=== PATIENT | female | born 1940 | race Caucasian/White ===

== ENCOUNTER → 2020-06-27 | Day surgery (SDC) | payer OTHER, MEDICARE ==
--- OUTSIDE RECORDS SUMMARY | 2020-06-27 12:12 | XMS ---
:1940 Author Organization [facility] Care Team Providers Name Role Phone Mega Bennie C Unavailable Androne, C Unavailable Androne, C Unavailable Androne, C Unavailable Androne, C Unavailable Androne, C Unavailable Androne, C Unavailable Androne, C Unavailable Androne, C Unavailable Re-disclosure Warning The records that you are about to access may contain information from federally- assisted alcohol or drug abuse programs. If such information is present, then the following federally mandated warning applies: This information has been disclosed to you from records protected by federal confidentiality rules (42 CFR part 2). The federal rules prohibit you from making any further disclosure of this information unless further disclosure is expressly permitted by the written consent of the person to whom it pertains or as otherwise permitted by 42 CFR part 2. A general authorization for the release of medical or other information is NOT sufficient for this purpose. The Federal rules restrict any use of the information to criminally investigate or prosecute any alcohol or drug abuse patient.The records that you are about to access may contain highly sensitive health information, the redisclosure of which is protected by Article 27-F of the [facility] Public Health law. If you continue you may haveaccess to information: Regarding HIV / AIDS; Provided by facilities licensed or operated by the [facility] Office of Mental Health; or Provided by the [facility] Office for People With Developmental Disabilities. If such information is present, then the following [facility] mandated warning applies: This information has been disclosed to you from confidential records which are protected by state law. State law prohibits you from making any further disclosure of this information without the specific written consent of the person to whom it pertains, or as otherwise permitted by law. Any unauthorized further disclosure in violation of state law may result in a fine or nursing home sentence or both. A general authorization for the release of medical or other information is NOT sufficient authorization for further disclosure. Encounters Encounter Providers Location Date Indications Data Source(s ) Attender: [facility] 04/07/2020 [facility] ([facility] 12:00:00 AM EDT Medical, ) Office Attender: Bennie Mega 04/07/2020 12:00:00 AM EDT [facility] ([facility], ) Office Attender: Bennie Mega 04/07/2020 12:00:00 AM EDT [facility] ([facility]) Office Attender: Bennie Ayoub 04/07/2020 12:00:00 AM EDT [facility] ([facility] 12:00:00 AM EDT [facility] ([facility]) Office Medications Medication Brand Start Product Dose Route Administrative Pharmacy [facility] Indications Reaction Description Data Name Date Form Instructions Instructions Source(s) Hydrochloro HYDROC 03/11/ TABLET 90 complet HYDR OCHLOROT MEDGEN (St thiazide HLOROT 2019 ed HIAZIDE [facility] 12.5 MG HIAZID 12:00: Medical, Oral Tablet E:4295 00 AM PC) HYDROCHLORO 03 EDT THIAZIDE:42 9503 120 ACTUAT FLUTIC 10/01/ SPRAY 1 complet FLUTIC ASONE [facility] (St Fluticasone ASONE 2019 ed NASAL [facility] propionate NASAL: 12:00: Medic al, 0.05 553817 00 AM PC) MG/ACTUAT EST Nasal Inhaler FLUTICASONE NASAL:56446 1 Losartan LOSART 10/01/ TABLET 90 complet LOSARTA N [facility] (St Potassium AN 2019 ed POTASSIUM [facility] 50 MG Oral POTASS 12:00: Medic al, Tablet IUM:97 00 AM PC) LOSARTAN 9492 EST POTASSIUM:9 47384 atorvastati ATORVA 07/05/ TABLET 90 complet ATOR VASTATIN MED[facility] (St n 20 MG STATIN 2018 ed [facility] Oral Tablet :54570 12:00: Medi chad, ATORVASTATI 0 00 AM PC) N:[id number] EDT Insurance Providers Payer name Policy type Policy ID Covered Covered libertarian's Policy P darion / Coverage libertarian ID relationship to [place] [facility] ormation type miller [facility] [id number] CARE OPTIONS MEDICARE [id number] SP [id number] [id number] PART B DOWNSTATE AARP MEDICARE [id number] SUPP[place] [id number] PART B [facility] [id number] SP [id number] CARE OPTIONS MEDICARE [id number] SP [id number] Problems, Conditions, and Diagnoses Code Display Name Description Problem Type Effective Dates Data Source(s) R94.6 Abnormal results ABNORMAL RESULTS Problem 04/07/2020 ME DGEN (St of thyroid OF THYROID 12:00:00 AM EDT [facility] function studies FUNCTION STUDIES [facility], ) E78.5 Hyperlipidemia, HYPERLIPIDEMIA, Problem 04/07/2020 MEDG EN (St unspecified UNSPECIFIED 12:00:00 AM EDT [facility], ) R31.21 Asymptomatic ASYMPTOMATIC Problem 04/07/2020 MEDGEN (St microscopic MICROSCOPIC 12:00:00 AM EDT [facility] hematuria HEMATURIA [facility], ) Z00.00 Encounter for ENCOUNTER FOR Problem 04/07/2020 MEDGEN ( St general adult GENERAL ADULT 12:00:00 AM EDT [facility] medical MEDICAL [facility], ) examination EXAMINATION without abnormal WITHOUT ABNORMAL findings FINDINGS Surgeries/Procedures Procedure Description Date Indications Data Source(s) Documentation of current 04/07/2020 MED GEN ([facility] medications (procedure) 12:00:00 AM EDT [facility] lopez ) Documentation of current 04/07/2020 MED GEN ([facility] medications (procedure) 12:00:00 AM EDT Hiwot lopez ) Documentation of current 04/07/2020 MED GEN ([facility] medications (procedure) 12:00:00 AM EDT [facility], ) Documentation of current 07/05/2019 MED GEN ([facility] medications (procedure) 12:00:00 AM EDT [facility], ) Documentation of current 07/05/2019 MED GEN ([facility] medications (procedure) 12:00:00 AM EDT [facility], ) Documentation of current 07/05/2019 MED GEN ([facility] medications (procedure) 12:00:00 AM EDT [facility], ) Documentation of current 07/05/2019 MED GEN ([facility] medications (procedure) 12:00:00 AM EDT [facility], ) OFFICE OUTPATIENT VISIT 07/05/2019 MEDG EN ([facility] 15 MINUTES 12:00:00 AM [facility], ) Results ID Date Data Source [id number] 07/05/2019 12:00:00 AM EDT [facility], ) Name Value Range Interpretation Code Description Data Supporting Source(s) Document(s ) Ferritin, 297 ng/mL Above high normal MEDGEN (St Serum [facility]'s [facility], ) ID Date Data Source [id number] 07/05/2019 12:00:00 AM EDT MEDGEN (St [facility]'s [facility], ) Name Value Range Interpretation Description Data Sup porting Code Source(s) Document(s ) Vitamin D, 51.0 Normal (applies to MEDGEN (St 25-Hydroxy ng/mL non-numeric [facility] results) Medical, ) ID Date Data Source [id number] 07/05/2019 12:00:00 AM EDT [facility], ) Name Value Range Interpretation Description Data Sup porting Code Source(s) Document(s ) Hemoglobin 5.2 % Normal (applies to MED[facility] (St A1c/Hemoglobin. non-numeric [facility] total in Blood results) Medical, ) ID Date Data Source [id number] 07/05/2019 12:00:00 AM EDT [facility], ) Name Value Range Interpretation Description Data Sup porting Code Source(s) Document(s ) Iron 303 ug/dL Normal (applies to MEDGEN (St Bind.Cap.(TIBC non-numeric [facility] ) results) Medical, ) Iron 44 % Normal (applies to [facility] (St saturation non-numeric [facility] [Mass results) Medical, ) Fraction] in Serum or Plasma UIBC 170 ug/dL Normal (applies to [facility] (St non-numeric [facility] results) Medical, ) Iron 133 ug/dL Normal (applies to MED[facility] (St [Mass/volume] non-numeric [facility] in Serum or results) Medical, ) Plasma ID Date Data Source [id number] 07/05/2019 12:00:00 AM EDT [facility] ([facility], ) Name Value Range Interpretation Description Data Sup porting Code Source(s) Document(s ) Triglyceride 38 mg/dL Normal (applies MEDGEN (St [Mass/volume] in to non-numeric [facility] Serum or Plasma results) Medical, ) Cholesterol 185 Normal (applies MED[facility] (St [Mass/volume] in mg/dL to non-numeric [facility] Serum or Plasma results) Medical, ) VLDL Cholesterol 8 mg/dL Normal (applies MEDGEN (St Chad to non-numeric [facility] results) Medical, ) HDL Cholesterol 108 Normal (applies MED[facility] ( St mg/dL to non-numeric [facility] results) Medical, ) LDL Cholesterol 69 mg/dL Normal (applies MED[facility] ( St Calc to non-numeric [facility] results) [facility], ) ID Date Data Source [id number] 07/05/2019 12:00:00 AM EDT [facility] ([facility], ) Name Value Range Interpretation Description Data Sup porting Code Source(s) Document(s ) Specific gravity 1.010 Normal (applies MEDGEN (St of Pericardial to non-numeric [facility] fluid by results) Medical, Refractometry ) Urine-Color Yellow Normal (applies [facility] (St to non-numeric [facility] results) Medical, ) pH of Lower 7.5 Normal (applies [facility] (St respiratory to non-numeric [facility] specimen results) Medical, ) Protein Negative Normal (applies MED[facility] (St [Mass/volume] in to non-numeric [facility] Lower results) Medical, respiratory ) specimen WBC Esterase Negative Normal (applies [facility] (St to non-numeric [facility] results) Medical, ) Appearance of Clear Normal (applies MED[facility] (St Abdomen to non-numeric [facility] results) Medical, ) Ketones Negative Normal (applies [facility] (St [Presence] in to non-numeric [facility] Blood by Tablet results) Medical, ) Glucose Negative Normal (applies [facility] (St [Mass/volume] in to non-numeric [facility] Urine collected results) [facility], for unspecified PC) duration Occult Blood Negative Normal (applies [facility] (St to non-numeric [facility] results) Medical, ) Bilirubin Negative Normal (applies [facility] (St [Presence] in to non-numeric [facility] Peritoneal fluid results) Medical, ) Urobilinogen,Pramod 0.2 mg/dL Normal (applies MED[facility] (St i-Qn to non-numeric [facility] results) Medical, ) Nitrite, Urine Negative Normal (applies [facility] (S t to non-numeric [facility] results) Medical, ) ID Date Data Source [id number] 07/05/2019 12:00:00 AM EDT [facility], ) Name Value Range Interpretation Description Data Sup porting Code Source(s) Document(s ) Glucose 85 mg/dL Normal (applies MED[facility] (St [Mass/volume] in to non-numeric [facility] Urine collected for results) [facility], unspecified PC) duration eGFR If NonAfricn 81 Normal (applies MEDGEN (St Am mL/min/1 to non-numeric [facility] .73 results) Medical, ) Creatinine 0.72 Normal (applies MED[facility] (St [Interpretation] in mg/dL to non-numeric [facility] Urine results) Medical, ) Urea nitrogen 12 mg/dL Normal (applies MED[facility] (St [Mass/volume] in to non-numeric [facility] Serum or Plasma results) Medical, ) eGFR If Africn Am 93 Normal (applies MED[facility] (St mL/min/1 to non-numeric [facility] .73 results) Medical, ) BUN/Creatinine 17 Normal (applies [facility] (S t Ratio to non-numeric [facility] results) Medical, ) Sodium 132 Below low normal MED[facility] (St [Moles/volume] in mmol/L [facility] Serum or Plasma Medical, ) Potassium 3.9 Normal (applies MED[facility] (St [Mass/volume] in mmol/L to non-numeric [facility] Blood results) Medical, PC) Carbon dioxide, 24 Normal (applies MEDGEN ( St total mmol/L to non-numeric [facility] [Moles/volume] in results) Medical, Serum or Plasma PC) Chloride 94 Below low normal [facility] (St [Moles/volume] in mmol/L [facility] Serum or Plasma Medical, ) Calcium 9.3 Normal (applies MED[facility] (St [Moles/volume] in mg/dL to non-numeric [facility] Urine collected for results) Medical, unspecified PC) duration Protein 6.5 g/dL Normal (applies [facility] (St [Mass/volume] in to non-numeric [facility] Serum or Plasma results) Medical, ) Globulin, Total 2.1 g/dL Normal (applies [facility] ( St to non-numeric [facility] results) Medical, PC) Microalbumin 4.4 g/dL Normal (applies MED[facility] (St [Mass/time] in to non-numeric [facility] Urine collected for results) Medical, unspecified PC) duration A/G Ratio 2.1 Normal (applies [facility] (St to non-numeric [facility] results) Medical, ) Bilirubin.total 0.9 Normal (applies MED[facility] ( St [Mass/volume] in mg/dL to non-numeric [facility] Serum or Plasma results) Medical, PC) Alkaline 67 IU/L Normal (applies MED[facility] (St phosphatase to non-numeric [facility] [Enzymatic results) Medical, activity/volume] in PC) Serum, Plasma or Blood Aspartate 26 IU/L Normal (applies MED[facility] (St aminotransferase to non-numeric [facility] [Enzymatic results) Medical, activity/volume] in PC) Serum or Plasma Alanine 18 IU/L Normal (applies MED[facility] (St aminotransferase to non-numeric [facility] [Enzymatic results) Medical, activity/volume] in PC) Serum or Plasma ID Date Data Source [id number] 07/05/2019 12:00:00 AM EDT [facility] ([facility], ) Name Value Range Interpretation Description Data Sup porting Code Source(s) Document(s ) Erythrocytes 3.74 Below low normal MED[facility] (St [#/volume] in x10E6/uL [facility] Blood by Medical, PC) Automated count Leukocytes 5.2 Normal (applies MEDGEN (St [#/volume] in x10E3/uL to non-numeric [facility] Blood by results) Medical, ) Automated count Hemoglobin 12.1 Normal (applies MEDGEN (St [Mass/volume] in g/dL to non-numeric [facility] Blood results) [facility], ) MCV 96 fL Normal (applies MED[facility] (St to non-numeric [facility] results) [facility], ) Hematocrit 35.8 % Normal (applies MEDGEN (St [Volume to non-numeric [facility] Fraction] of results) [facility], ) Blood by Automated count MCHC 33.8 Normal (applies MED[facility] (St g/dL to non-numeric [facility] results) [facility], ) MCH 32.4 pg Normal (applies [facility] (St to non-numeric [facility] results) [facility], ) Platelets 238 Normal (applies MEDGEN (St [#/area] in x10E3/uL to non-numeric [facility] Blood by results) [facility], ) Microscopy high power field RDW 13.0 % Normal (applies [facility] (St to non-numeric [facility] results) [facility], ) Neutrophils [#] 38 % Normal (applies MEDGEN ( St in Body fluid by to non-numeric [facility] Manual count results) [facility], ) Monocytes 9 % Normal (applies MEDGEN (St [#/volume] in to non-numeric [facility] Cord blood results) [facility], ) Lymphs 48 % Normal (applies MED[facility] (St to non-numeric [facility] results) [facility], ) Basos 1 % Normal (applies MED[facility] (St to non-numeric [facility] results) [facility], ) Eos 4 % Normal (applies [facility] (St to non-numeric [facility] results) [facility], ) Lymphs 2.5 Normal (applies MEDGEN (St (Absolute) x10E3/uL to non-numeric [facility] results) [facility], ) Monocytes(Absolu 0.5 Normal (applies MEDGEN (St te) x10E3/uL to non-numeric [facility] results) [facility], ) Neutrophils 1.9 Normal (applies MEDGEN (St (Absolute) x10E3/uL to non-numeric [facility] results) [facility], ) Eos (Absolute) 0.2 Normal (applies MEDGEN (S t x10E3/uL to non-numeric [facility] results) [facility], ) Immature 0 % Normal (applies MEDGEN (St Granulocytes to non-numeric [facility] results) [facility], ) Baso (Absolute) 0.0 Normal (applies MEDGEN ( St x10E3/uL to non-numeric [facility] results) [facility], ) Immature Grans 0.0 Normal (applies MEDGEN (S t (Abs) x10E3/uL to non-numeric [facility] results) [facility]) ID Date Data Source [id number] 07/05/2019 12:00:00 AM EDT [facility] ([facility], ) Name Value Range Interpretation Code Description Data Maryanne rce(s) Supporting Document(s ) TSH 4.510 Above high normal MEDGEN (St uIU/mL [facility], ) T4,Free(D 1.30 ng/dL Normal (applies to MED[facility] (St irect) non-numeric [facility] results) [facility], ) Procedure Social History Code Duration Value Status Description Data Source(s ) Smoking 04/07/2020 with 3 completed with 3 MED[facility] (St 12:00:00 AM EDT children Tobacco children Tob acco [facility], Status: Former Status: Former ) smoker Tobacco smoker Tobacco details: details: Cigarettes Cigarettes Smoking Smoking History: History: 20-30 20-30 Years (23 Years (23 years) years) Daily Daily Smoking: < Smoking: < 1 1 Pack Pack (Usualy 1/2 (Usualy 1/2 pack pack or less.) or less.) Smoking Smoking Stop Date: Stop Date: Stopped 1999 Stopped 1999 Drinks wine with Drinks ... dinner Smoking 04/07/2020 Unknown if ever completed Unknown if ever MEDG EN (St 12:00:00 AM EDT smoked smoked Jose [facility]) Vital Signs ID Date Data Source UNK Name Value Range Interpretation Code Description Data Source(s) Heart rate 74 /min 74 /min [facility] ([facility] , ) Respiratory rate 14 /min 14 /min MED[facility] ( [facility]) Body temperature 97.3 F 97.3 F MEDGEN ( [facility] , ) Inhaled oxygen 98 % 98 % MEDGEN ([facility], ) Body mass index 28.3 kg/m2 28.3 kg/m2 MEDGEN (S t (BMI) [Ratio] [facility]) Diastolic blood 84 mm[Hg] 84 mm[Hg] MEDGEN (S t pressure [facility]) Systolic blood 118 mm[Hg] 118 mm[Hg] MED[facility] ([facility]) Body weight 155 lb 155 lb [facility] ([facility]) Body height 62 in 62 in [facility] ([facility]) Heart rate 70 /min 70 /min [facility] ([facility]) Respiratory rate 14 /min 14 /min MED[facility] ( [facility]) Inhaled oxygen 98 % 98 % [facility] ([facility]) Body mass index 28.2 kg/m2 28.2 kg/m2 [facility] (S t (BMI) [Ratio] [facility]) Diastolic blood 80 mm[Hg] 80 mm[Hg] MED[facility] (S t pressure [facility]) Systolic blood 128 mm[Hg] 128 mm[Hg] [facility] ([facility]) Body weight 154 lb 154 lb [facility] ([facility]) Body height 62 in 62 in [facility] ([facility])
--- NOTE | 2020-06-30 14:29 | PATH ---
Surgical Pathology Report Patient Name: JACE TURK [facility]. Rec. #: [id number] /Age/Gender: 1940 (Age: 79) / F Account: [id number] Location: [facility] U Taken: 06/27/2020 Received: 06/27/2020 Reported: 06/30/2020 Physicians: Melinda Werner M.D. Specimen(s) Received RIGHT BREAST 10:00 2 CM FN Clinical History Ultrasound findings: Highly suspicious/malignant Final Diagnosis BREAST, RIGHT, 10:00, 2 CM FN, CORE BIOPSY: INVASIVE DUCTAL CARCINOMA, POORLY DIFFERENTIATED, WITH MICROPAPILLARY FEATURES AND ASSOCIATED MICROCALCIFICATIONS. INVASIVE CARCINOMA MEASURES AT LEAST 4 MM IN THIS MATERIAL. Results of (Estrogen Receptor) ER and (Progesterone Receptor) PgR studies performed at [facility] are as follows: ER (clone [id number] mouse monoclonal antibody by [employer]): _X_ Positive (greater than 10% of cells demonstrate nuclear positivity)~ 95 % with strong nuclear staining PgR (clone16 mouse monoclonal antibody by [employer]): _X_ Positive ~60 % with moderate to strong nuclear staining Comment: Case seen in intradepartmental review with consensus on diagnosis. Her2/Ki-67 pending, findings will reported separately. Positive and negative controls (internal if applicable) show appropriate results. Formalin fixation and cold ischemic times are within current ASCO/CAP recommendations for ER, [place] and Her2 testing. Electronically Signed Ayesha Rivera M.D. Addendum Reported: 06/30/2020 Addendum Diagnosis Case discussed with Dr. Ramirez, 06/30/2020. Ayesha Rivera M.D. Addendum Reported: 07/03/2020 Addendum Diagnosis Results of Her2 (IHC) & Ki-67 studies performed at [place], [place] ([id number]) are as follows: Her2 IHC (EP3 from [employer], formerly known as [id number], using [employer] Polymer Refine detection kit): 1+ (Negative). Ki-67: ~25% (Intermediate proliferative index). Positive and negative controls (internal if applicable) show appropriate results. Ayesha Rivera M.D. Gross Description Received in formalin labeled "right breast 10:00, 2 cm fn " is a 1.4 x 1.0 x 0.2 cm aggregate of multiple lynch-yellow, irregular to cylindrical portions of fibroadipose tissue admixed with blood clot. The formalin is filtered and the specimen is entirely submitted in one cassette. Time to formalin fixation: 2 minutes Total formalin fixation time: Approximately 6 hours. 06/27/2020 roldan06/27/2020
== END | disposition home or self-care (01) ==
LOC: FRADUS-SUR 12:00
PROVIDERS: ATTEND Obstetrics & Gynecology
PROC: 0H9T3ZX Drainage of Right Breast, Percutaneous Approach, Diagnostic (ICD-10-PCS; principal; 2020-06-27)
DX: C50.411 Malignant neoplasm of upper-outer quadrant of right female breast (principal); Z17.0 Estrogen receptor positive status [ER+]; N64.89 Other specified disorders of breast; N63.11 Unspecified lump in the right breast, upper outer quadrant
CPT/HCPCS: 19083; 77065-TC; 87899; 88305-TC; 88342-TC; A4648

== ENCOUNTER → 2020-07-28 | Day surgery (SDC) | payer OTHER, MEDICARE | END | disposition home or self-care (01) | LOC: FRADUS-SUR 10:48 | PROVIDERS: ATTEND Surgery Surgical Oncology | PROC: 0HHT3YZ Insertion of Other Device into Right Breast, Percutaneous Approach (ICD-10-PCS; principal; 2020-07-28) | DX: C50.411 Malignant neoplasm of upper-outer quadrant of right female breast (principal) | CPT/HCPCS: 19281 ==

== ENCOUNTER 2020-07-29 12:00 | Day surgery (SDC) | payer OTHER, MEDICARE ==
[2020-07-23 15:22] VITALS: BMI 27.4
[~2020-07-29 12:00] MED LIST: BUPIVACAINE HCL/PF 0.25% (2.5MG/ML) 10 ML VIAL IJ ONE
[2020-07-29] MEDS ORDERED: ISOSULFAN BLUE 50 MG/5 ML VIAL SQ ONE (12:53)
[2020-07-29] MEDS ORDERED: LIDOCAINE HCL 1%, 10 MG/ML (20ML VIAL) ONE (12:53)
[2020-07-29] MEDS ORDERED: BUPIVACAINE HCL/PF 0.5% (5MG/ML) 10 ML VIAL ONE (12:53)
[2020-07-29] MEDS ORDERED: ONDANSETRON 4 MG/2 ML VIAL ONE (13:07)
[2020-07-29] MEDS ORDERED: PROPOFOL 20 ML ONE (13:07)
[2020-07-29] MEDS ORDERED: DEXAMETHASONE SOD PHOSPHATE 4 MG/1 ML VIAL ONE (13:15)
[2020-07-29] MEDS ORDERED: ceFAZolin SODIUM 1 GM VIAL ONE ×2 (13:30→13:32)
[2020-07-29] MEDS ORDERED: LIDOCAINE HCL 1%, 10 MG/ML (20ML VIAL) NR ONE (14:05)
[2020-07-29] MEDS ORDERED: ONDANSETRON 4 MG/2 ML VIAL IVPUSH PRN ×2 (15:05→16:28)
[2020-07-29] MEDS ORDERED: KETOROLAC TROMETHAMINE 30 MG/1 ML VIAL IVPUSH PRN (15:05)
[2020-07-29] MEDS ORDERED: DEXTROSE 5%-0.45% SALINE 1,000 ML IV SCH (15:15)
[2020-07-29] MEDS ORDERED: BUPIVACAINE HCL/PF 0.25% (2.5MG/ML) 10 ML VIAL IJ ONE (16:18)
[2020-07-29] MEDS ORDERED: PROMETHAZINE HCL 25 MG/1 ML VIAL IVPUSH PRN (16:28)
[2020-07-29] MEDS ORDERED: oxyCODONE HCL 5 MG TABLET PO PRN (16:28)
[2020-07-29] MEDS ORDERED: LACTATED RINGERS SOLUTION 1,000 ML IV SCH (16:30)
[2020-07-29] MEDS ORDERED: KETOROLAC TROMETHAMINE 30 MG/1 ML VIAL ONE (16:33)
[2020-07-29 17:14] VITALS: TEMP 98
[2020-07-29 18:13] VITALS: BP 125/67; PULSE 72
== END 2020-07-29 18:05 | disposition home or self-care (01) ==
LOC: FASU 12:00
PROVIDERS: ATTEND Surgery Surgical Oncology
PROC: 0HBT0ZZ Excision of Right Breast, Open Approach (ICD-10-PCS; principal; 2020-07-29 14:02)
PROC: DMY17ZZ Contact Radiation of Right Breast (ICD-10-PCS; 2020-07-29 14:02)
DX: C50.411 Malignant neoplasm of upper-outer quadrant of right female breast (principal)
CPT/HCPCS: 76098-TC-FY; 76641-TC-50; 77290; 77300; 77316; 77332; 77370-TC; 77424; 78195-TC; 88307-TC; 94760; A9541; C9726